=== PATIENT | female | born 1980 | race African-American/Black ===

== ENCOUNTER 2020-12-14 02:34 | Emergency (ER) | payer SELFPAY ==
[~2020-12-14] VITALS: Ht 165.1 cm; Wt 86.2 kg
[2020-12-14 02:45] VITALS: BP 130/89
[2020-12-14] MEDS ORDERED: HYDROCODONE/APAP 5/325MG TABLET PO ONE (03:30)
[2020-12-14] MEDS ORDERED: IBUPROFEN 600 MG TABLET PO ONE (03:30)
[2020-12-14] MEDS ORDERED: IBUPROFEN 600 MG TABLET ONE (03:39)
[2020-12-14] MEDS ORDERED: HYDROCODONE/APAP 5/325MG TABLET ONE (03:39)
== END 2020-12-14 03:47 | disposition home or self-care (01) ==
LOC: ER 02:37
DX: G43.909 Migraine, unspecified, not intractable, without status migrainosus (principal); M54.5 Low back pain; G89.29 Other chronic pain; Z59.0 Homelessness